=== PATIENT | female | born 1980 | race Caucasian/White ===

== ENCOUNTER 2020-05-25 06:23 | Day surgery (SDC) | payer OTHER, SELFPAY ==
[~2020-05-25] VITALS: Ht 170.2 cm; Wt 63.5 kg
[2020-05-25] MEDS ORDERED: MIDAZOLAM 5 MG/5 ML VIAL ONE (07:26)
[2020-05-25] MEDS ORDERED: diphenhydrAMINE 50 MG/ML VIAL ONE (07:26)
[2020-05-25] MEDS ORDERED: LIDOCAINE 2% 100 MG/5 ML UJET TP ONE ×2 (07:26→09:45)
[2020-05-25] MEDS ORDERED: fentaNYL citrate 0.05 MG/ML VIAL ONE (07:26)
[2020-05-25] MEDS ORDERED: MIDAZOLAM 2 MG/2 ML VIAL IVP ONE (09:45)
[2020-05-25] MEDS ORDERED: fentaNYL citrate 0.05 MG/ML VIAL IVP ONE (09:45)
== END 2020-05-25 08:42 | disposition home or self-care (01) ==
LOC: MDS 06:23 → MFCC 06:34 → MDS 08:42
PROVIDERS: ATTEND Internal Medicine Gastroenterology
DX: K62.5 Hemorrhage of anus and rectum (principal); K52.9 Noninfective gastroenteritis and colitis, unspecified; K51.811 Other ulcerative colitis with rectal bleeding; Z98.0 Intestinal bypass and anastomosis status; F17.210 Nicotine dependence, cigarettes, uncomplicated; Z79.899 Other long term (current) drug therapy; Z20.828 Contact with and (suspected) exposure to other viral communicable diseases
CPT/HCPCS: 45380; 88305; J2250; J3010; U0003; J1200